=== PATIENT | male | born 1985 | race Caucasian/White ===

== ENCOUNTER 2020-09-13 16:55 | Emergency (ER) | payer BC, MEDICAID ==
[~2020-09-13] VITALS: Ht 180.3 cm; Wt 92.1 kg
[2020-09-13 17:22] VITALS: Ht 180.3 cm; Wt 92.1 kg
[2020-09-13 19:24] LABS: BASOPHIL % 1.2 % (0.2-1.5); PLATELET COUNT 159 x10^3mcL (152-348); RED CELL DISTRIBUTION WIDTH 13.3 % (12.1-16.2)
[2020-09-13 19:53] LABS: CALCIUM 8.9 mg/dL (8.5-10.1); CARBON DIOXIDE 25.6 mmol/L (21-32); CHLORIDE SERUM 101 mmol/L (98-107); GFR1 > 60 mL/min; GLUCOSE SERUM 110 mg/dL (74-106); POTASSIUM SERUM 3.8 mmol/L (3.5-5.1); SODIUM SERUM 136 mmol/L (136-145)
[2020-09-13 19:55] LABS: ALBUMIN 4.3 g/dL (3.4-5.0); ALKALINE PHOSPHATASE 87 U/L (46-116); ALT/SGPT 20 U/L (16-63); AST/SGOT 13 U/L (15-37); BILIRUBIN TOTAL 1.5 mg/dL (0.20-1.00); TOTAL PROTEIN, SERUM 7.9 g/dL (6.4-8.2)
[2020-09-13 20:30] VITALS: BP 129/82
== END 2020-09-13 20:30 | disposition home or self-care (01) ==
LOC: ED 16:55
PROVIDERS: Student in an Organized Health Care Education/Training Program
DX: F41.9 Anxiety disorder, unspecified (principal); M79.10 Myalgia, unspecified site; R06.02 Shortness of breath; R07.89 Other chest pain; Z20.828 Contact with and (suspected) exposure to other viral communicable diseases
CPT/HCPCS: U0003